=== PATIENT | female | born 1995 | race Caucasian/White ===

== ENCOUNTER → 2022-11-15 | Outpatient (RCR) | payer OTHER, MEDICAID ==
[2022-10-25 13:27] VITALS: BP 109/69; PULSE 84; TEMP 98.4
[2022-10-29 13:18] VITALS: BP 106/70; PULSE 78; TEMP 98.7
[2022-11-02 08:30] VITALS: BP 108/66; PULSE 82; TEMP 98.6
[2022-11-05 14:04] VITALS: BP 111/70; PULSE 79; TEMP 98.6
--- NOTE | 2022-11-05 15:15 | NUR ---
PICC flushed, wrapped with CHELA wrap. IV to LFA was removed at completion of first L LR, site wrapped with coban. Pt and exit dept, pt's gait steady.
[2022-11-08 13:24] VITALS: BP 113/72; PULSE 80; TEMP 98.4
[2022-11-12 13:27] VITALS: BP 112/72; PULSE 78; TEMP 98.5
[~2022-11-15] VITALS: Ht 152.4 cm; Wt 61.0 kg
[~2022-11-15] MED LIST: BENADRYL50 MG PO; COLACE 100100 MG/CAP PO; DRAMAMINE LESS25 MG PO; LACTATED RING IV; LOVENOX 3030 MG/0.3 SQ; PHENERGAN 25 TA25 MG PO; PHENERGAN50 MG/SUPP RC; PRILOSEC 20MG20 MG PO; THORAZINE 550 MG/TAB PO; TRANSDERM-0.5 MG/21 TD; ZOFRAN ODT4 MG PO
--- NOTE | 2022-11-15 13:15 | NUR ---
Patient ambulatory to [facility] Unit accompanied by & daughter. Upon greeting patient she stated "not doing good today." Patient appeared unsteady, offered a w/c & asked if she wanted to go straight to a chair without getting her weight. Patient stated that she had been so sick the last few days that she wanted to know her weight. After weight, proceeded to chair; & daughter to the waiting room. Once patient in chair she became tearful. Patient stated that she showered this morning & got her PICC line dressing wet; advised that we would look at the dressing & offered alternatives to cover the PICC. Discussed tape options for occlusion; patient stated that her & her are not working, do not have insurance & are "basically homeless." Patient become more tearful, sobbing. Offered support. Kathy MANZANARES enters with warm blanket. Patient begins to talk about financial stress at home, being sick & her doctor appointment yesterday. Offered to move her to a private room; patient agreed & assisted to room 9. When in room the patient repeated that her & her are not working, have no insurance & do not have a home. Offered to call social work to see if there are community resources available. Patient refused stating "they will just take my baby away." Advised that is not what social work would do, rather help her with support for her baby. Patient continued to refuse. Support provided. Patient's physical appearance was more pale than normal. She was more unsteady when ambulating. Noted a yellow tinged hue under her eyes. Patient usually wears bright colored eye make up, but was not today. Could not determine if yellow hue was faded bruising or makeup residual. Patient was able to calm self down after talking with staff.
[2022-11-15 13:20] VITALS: BP 133/88; PULSE 97; TEMP 98.2
--- NOTE | 2022-11-15 15:33 | NUR ---
Pt c/o nausea throughout stay in EU with occasional wretching and did vomit small amount of fluid. OB office was called and stated they would send order for IV phenergan. This was offered to pt prior to departure. Pt refuses IV phenergan, stating she wants to go home to try to sleep and will take her phenergan suppository at home. She was able to ambulate to restroom to urinate. States she was dizzy with activity earlier today, but this has improved with IVF. She refuses wheelchair assistance out. She is escorted to waiting room, gait steady, to meet her who walks out with her.
== END | disposition home or self-care (01) ==
LOC: EUO
DX: O21.0 Mild hyperemesis gravidarum (principal); Z3A.00 Weeks of gestation of pregnancy not specified
CPT/HCPCS: C1751; J1200; J2405; J7120

== ENCOUNTER 2022-12-14 11:00 | Outpatient (RCR) | payer OTHER, MEDICAID ==
[2022-11-20 14:11] VITALS: BP 114/71; PULSE 95; TEMP 97.8
[2022-11-22 12:28] VITALS: BP 117/64; PULSE 78; TEMP 98.7
[2022-11-23 13:20] VITALS: BP 111/67; PULSE 78; TEMP 97.8
--- NOTE | 2022-11-23 15:30 | NUR ---
Pt here for IV fluids.Pt requests to remain with pt during stay.Pt answers questions frequently directed to pt.Pt observed clenching fists when pt denies his need for assistance getting out of chair.
[2022-11-26 11:32] VITALS: BP 109/69; PULSE 83; TEMP 98.1
[2022-11-27 11:19] VITALS: BP 117/60; PULSE 85; TEMP 98
[2022-11-28 11:30] VITALS: BP 114/67; PULSE 88; TEMP 98.3
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
[2022-11-30 11:42] VITALS: BP 111/68; PULSE 91; TEMP 98.2
[2022-11-30 11:42] LABS: BILIRUBIN,TOTAL 0.2 mg/dL (0.2-1.2); CALCIUM 8.2 mg/dL (8.4-10.2); CREATININE, serum 0.62 mg/dL (0.57-1.11); POTASSIUM 3.7 mmol/L (3.5-4.5); TOTAL PROTEIN 5.6 gm/dL (6.2-8.1)
[2022-11-30 12:16] LABS: BASO # 0.1 K/mm3 (0.0-0.2); BASO % 0.7 % (0.0-2.0); EOS # 0.2 K/mm3 (0.0-0.7); EOS % 2.3 % (0.0-4.0); GRAN # 5.3 K/mm3 (1.4-6.5); GRAN % 74.3 % (42.2-75.2); HEMOGLOBIN 10.2 g/dl (12.5-16.0); LYMPH # 1.2 K/mm3 (1.2-3.4); LYMPH % 17.2 % (20.0-51.0); MEAN CELL VOLUME 93 fl (80.0-100.0); MEAN CORPUSCULAR HEMOGLOBIN 30 pg (27-31); MEAN CORPUSCULAR HGB CONC 33 g/dl (33.0-37.0); MEAN PLATELET VOLUME 9.3 fl (7.4-10.4); MONO # 0.4 K/mm3 (0.1-0.6); MONO % 5.2 % (1.7-9.3); PLATELET COUNT 278 K/mm3 (130-400); RED BLOOD COUNT 3.36 M/mm3 (4.10-5.30); REDCELL DISTRIBUTION WIDTH-CV 12.8 % (11.5-14.5)
[2022-11-30 12:17] LABS: HEMATOCRIT 31.1 % (37.0-47.0)
[2022-12-03 11:08] VITALS: BP 112/59; PULSE 109; TEMP 98.3
[2022-12-04 12:40] VITALS: BP 130/83; PULSE 112; TEMP 98.7
--- NOTE | 2022-12-04 13:29 | NUR ---
pt to Express for fluids, dressing that was placed yesterday has become loose to, the insert site is exposed to air. sterile dressing change completed. No further questions or concerns.
[2022-12-05 11:22] VITALS: BP 123/78; PULSE 107; TEMP 98.9
[2022-12-07 11:12] VITALS: BP 111/72; PULSE 89; TEMP 98.3
[2022-12-10 11:09] VITALS: BP 129/75; PULSE 97; TEMP 98.8
[2022-12-11 11:10] VITALS: BP 118/58; PULSE 92; TEMP 98.3
[2022-12-12 11:40] VITALS: BP 102/65; PULSE 88; TEMP 97.8
[~2022-12-14] VITALS: Ht 152.4 cm; Wt 61.3 kg
[2022-12-14 11:19] VITALS: BP 96/53; PULSE 81; TEMP 98.7
[2022-12-14 14:23] LABS: COLLECTION METHOD CLEAN CATCH
[2022-12-14 14:34] LABS: MUCOUS Present (NOT PRESENT); SQUAMOUS EPITHELIAL 0-2 /hpf (0-10); URINE BACTERIA None Seen /hpf (NONE SEEN); URINE RBC None Seen /hpf (0-2); URINE WBC 0-2 /hpf (0-2)
[2022-12-14 14:38] LABS: PH 8.5 (5-8); URINE APPEARANCE Clear (CLEAR/HAZY); URINE BLOOD Negative (NEGATIVE); URINE COLOR Yellow (YELLOW); URINE GLUCOSE Negative (NEGATIVE); URINE KETONE Negative (NEGATIVE); URINE NITRATE Negative (NEGATIVE); URINE PROTEIN(semi-quant) Negative (NEGATIVE); URINE UROBILINOGEN 0.2 (NEGATIVE)
[2022-12-21] MEDS ORDERED: LAMICTAL 100MG100 MG PO (11:47)
[2022-12-21] MEDS ORDERED: THORAZINE 225 MG/TAB PO (11:49)
[2022-12-21] MEDS ORDERED: CELEXA10 MG PO (11:49)
[2022-12-21] MEDS ORDERED: LOVENOX 4040 MG/0.4 SQ (11:50)
[2022-12-21] MEDS ORDERED: WELLBUTRIN XL150 MG PO (11:50)
[2022-12-24] MEDS ORDERED: PREDNISONE10 MG PO (11:21)
[2023-01-01] MEDS ORDERED: KLONOPIN2 MG PO (16:08)
[2023-01-02] MEDS ORDERED: ZYPREXA10 MG PO (11:25)
== END 2022-12-14 14:28 | disposition home or self-care (01) ==
LOC: EUO 11:00
PROVIDERS: Obstetrics & Gynecology
DX: O21.0 Mild hyperemesis gravidarum (principal); Z3A.00 Weeks of gestation of pregnancy not specified
CPT/HCPCS: J1200; J2405; J7120

== ENCOUNTER 2022-12-28 07:34 | Emergency (ER) | payer OTHER, MEDICAID ==
[~2022-12-28] VITALS: Ht 160 cm; Wt 60.9 kg
[~2022-12-28 07:34] MED LIST changes: +CELEXA10 MG PO; +LAMICTAL 100MG100 MG PO; +LOVENOX 4040 MG/0.4 SQ; +PREDNISONE10 MG PO; +THORAZINE 225 MG/TAB PO; +WELLBUTRIN XL150 MG PO
[2022-12-28 07:48] LABS: BASO # 0.1 K/mm3 (0.0-0.2); BASO % 0.5 % (0.0-2.0); EOS # 0.1 K/mm3 (0.0-0.7); EOS % 0.9 % (0.0-4.0); GRAN # 7.4 K/mm3 (1.4-6.5); GRAN % 67.5 % (42.2-75.2); LYMPH # 2.7 K/mm3 (1.2-3.4); LYMPH % 24.7 % (20.0-51.0); MEAN CELL VOLUME 92 fl (80.0-100.0); MEAN CORPUSCULAR HGB CONC 34 g/dl (33.0-37.0); MEAN PLATELET VOLUME 9.3 fl (7.4-10.4); MONO # 0.7 K/mm3 (0.1-0.6); PLATELET COUNT 253 K/mm3 (130-400); RED BLOOD COUNT 3.14 M/mm3 (4.10-5.30); REDCELL DISTRIBUTION WIDTH-CV 12.7 % (11.5-14.5)
[2022-12-28 07:49] LABS: HEMATOCRIT 28.9 % (37.0-47.0); HEMOGLOBIN 9.8 g/dl (12.5-16.0); MEAN CORPUSCULAR HEMOGLOBIN 31 pg (27-31)
[2022-12-28 08:14] LABS: ALANINE AMINOTRANSFERASE 10 U/L (0-55); ALBUMIN 3.2 gm/dL (3.5-5.0); ALKALINE PHOSPHATASE 55 U/L (40-150); ANION GAP 10 mmol/L (7-16); AST,SGOT 11 U/L (5-34); BILIRUBIN,TOTAL < 0.5 mg/dL (0.2-1.2); BLOOD UREA NITROGEN 5 mg/dL (7-19); CALCIUM 8.7 mg/dL (8.4-10.2); CARBON DIOXIDE 21 mmol/L (22-29); CHLORIDE 107 mmol/L (98-107); CREATININE, serum 0.64 mg/dL (0.57-1.11); GLUCOSE 84 mg/dL (70-99); POTASSIUM 3.5 mmol/L (3.5-4.5); SODIUM 138 mmol/L (136-145); TOTAL PROTEIN 5.8 gm/dL (6.2-8.1)
[2022-12-28 08:15] LABS: TROPONIN-I < 0.010 ng/mL (0.00-0.033)
--- NOTE | 2022-12-28 08:29 | NUR ---
Pt 24.1 GESTATION ACCORDING TO RECORDS. PT REPORTS SHE IS 28 WEEKS. PRESENTED TO ER WITH N/V. LETHARGIC AT THIS TIME. REPORTS TAKING "BENADRYL AND STEROIDS" AND FEELING "VERY GROGGY AND CRAZY". THIS NURSE TO ER TO OBTAIN A 2O MINUTE EFM STRIP. NO ACCELERATIONS OR DECELERATIONS NOTED. MINIMAL TO MODERATE VARIABILITY THROUGHOUT. FHR 140'S-150'S. NO CONTRACTIONS NOTED AT THIS TIME. ACTIVE FETUS THROUGHOUT ASSESSMENT.
[2022-12-28 11:55] VITALS: BP 101/53; PULSE 102; TEMP 98.2
[2023-01-01] MEDS ORDERED: KLONOPIN2 MG PO (16:08)
[2023-01-02] MEDS ORDERED: ZYPREXA10 MG PO (11:25)
== END 2022-12-28 12:02 | disposition home or self-care (01) ==
LOC: COL.ER 07:34
PROVIDERS: Emergency Medicine
DX: O99.342 Other mental disorders complicating pregnancy, second trimester (principal); O26.892 Other specified pregnancy related conditions, second trimester; F41.9 Anxiety disorder, unspecified; R51.9 Headache, unspecified; Z3A.24 24 weeks gestation of pregnancy; Z28.310 Unvaccinated for COVID-19
CPT/HCPCS: J0780; J1200; J1650; J2405; J7030

== ENCOUNTER 2023-03-15 11:00 | Outpatient (RCR) | payer OTHER, MEDICAID ==
[2023-02-16 07:47] VITALS: BP 135/72; PULSE 106; TEMP 98.3
[2023-02-17 08:03] VITALS: BP 117/68; PULSE 110; TEMP 98.2
--- NOTE | 2023-02-17 09:51 | NUR ---
PT ARRIVED 30 MINUTES LATE TO HER INFUSION THIS MORNING. UPON INQUIRING ABOUT TARDINESS, PATIENT'S ANSWERED STATING "MARY JANE WAS BEING A DOOFUS THIS MORNING AND SHE CAN'T KEEP TRACK OF ANY OF HER APPOINTMENT TIMES." LATER, PATIENT WAS TALKING TO THIS RN ABOUT HER GESTATIONAL DIABETES RESULTS AND STATED THAT SHE CAME CLOSE TO BEING DIAGNOSED WITH GESTATIONAL DIABETES, TO WHICH HER RESPONDED "YA IT'S BECAUSE YOU ARE A FAT FUCK MARY JANE". A SMALL PURPLE MARKING NOTED ON PATIENT'S LEFT HAND STRETCHING FROM THUMB TO INDEX FINGER. PATIENT DID NOT STATE THAT IT WAS CAUSING HER ANY PAIN. PATIENT'S VITAL SIGNS WERE WITHIN NORMAL LIMITS AND SHE TOLERATED INFUSION WELL.
--- NOTE | 2023-02-18 11:15 | NUR ---
Pt has had to have multiple dressing changes in past week. This RN educated pt on importance of keeping dressing clean and intact d/t increased risk of infection if otherwise cared for. Pt educated that dressing changes can also increase risk of infection and 1x per week is the standard to prevent this. Pt verbalized understanding of education and importance to care better for her PICC dressing home.
[2023-02-18 11:17] VITALS: BP 114/74; PULSE 113; TEMP 98.1
[2023-02-19 11:18] VITALS: BP 124/68; PULSE 119; TEMP 98.4
[2023-02-20 11:06] VITALS: BP 125/74; PULSE 103; TEMP 97.9
[2023-02-21 11:13] VITALS: BP 117/65; PULSE 108; TEMP 98.5
[2023-02-22 11:16] VITALS: BP 169/90; PULSE 107; TEMP 98.5
--- NOTE | 2023-02-22 12:05 | NUR ---
Patient to labor room 2 via wheelchair from [facility]. Patient oriented to room, patient assisted into bed. Patient reports contractions starting around 1115 every 15 minutes, no leaking of fluid or vaginal bleeding, and good movement. EFM and TOCO placed and tracing.
--- NOTE | 2023-02-22 12:07 | NUR ---
Pt reports to Kierra Wei she is having contranctions.This nurse clarified with pt.Per pt she has had contractions 3 min apart.Pt reports they had been happening since about 30 min after arrival.Pt requests to be checked by OB.Ob charge called by this nurse.Pt taken to OB at 1205,report to nurse.Clarified if OB wanted her fluids to continue to infuse.Pt transferred with her LR/Zofran infusing by gravity as previously ordered.
[2023-02-22 12:30] VITALS: BP 127/75; PULSE 89; TEMP 98.2
[2023-02-22 13:00] VITALS: BP 124/70; PULSE 87
[2023-02-22 13:30] VITALS: BP 120/69; PULSE 88
--- NOTE | 2023-02-22 13:47 | NUR ---
THIS RN CALLS WITH AN UPDATE, SEE PHYSICIAN NOTIFICATION. GIVES THIS RN AN ORDER FOR DISCHARGE, THIS RN UNABLE TO ENTER DISCHARGE ORDER DUE TO EXPRESS [facility] ACCOUNT.
[2023-02-22 13:50] VITALS: BP 122/68; PULSE 91
--- NOTE | 2023-02-22 14:00 | NUR ---
DISCHARGE INSTRUCTIONS DISCUSSED WITH PATIENT, PATIENT VERBALIZES UNDERSTANDING. PATIENT AMBULATORY OFF UNIT WITH SIGNIFICANT OTHER.
[2023-02-23 08:02] VITALS: BP 131/76; PULSE 100; TEMP 98
[2023-02-24 07:51] VITALS: BP 128/79; PULSE 16; TEMP 97.9
[2023-02-25 11:06] VITALS: BP 119/74; PULSE 104; TEMP 98
[2023-02-26 11:13] VITALS: BP 112/65; PULSE 115; TEMP 97.5
[2023-02-27 11:23] VITALS: BP 127/75; PULSE 112; TEMP 98.6
[2023-02-28 11:16] VITALS: BP 114/56; PULSE 104; TEMP 98.2
--- NOTE | 2023-02-28 13:25 | NUR ---
PICC dressing coming up around edges. It is reenforced with tegaderm. Home cares reviewed. Russell wrap applied for additional protection. JOSE Shin aware.
[2023-03-01 11:10] VITALS: BP 109/73; PULSE 101; TEMP 97.6
--- NOTE | 2023-03-01 11:13 | NUR ---
Pt asked if they will be coming in this weekend for IV infusions. States they will not be here this weekend and we will see them for their Saturday appointment.
[2023-03-04 11:15] VITALS: BP 131/83; PULSE 117; TEMP 97.5
[2023-03-05 11:53] VITALS: BP 126/78; PULSE 98; TEMP 97.9
[2023-03-07 11:34] VITALS: BP 134/78; PULSE 117; TEMP 97.8
[2023-03-08 10:55] VITALS: BP 120/65; PULSE 113; TEMP 97.7
--- NOTE | 2023-03-08 11:54 | NUR ---
1129- This RN to bedside in Express unit. EFM and TOCO on. Pt denies VB, LOF, UCs. +FM per Pt. 1154- Category I FHR tracing with accels. EFM and TOCO off. Questions answered.
--- NOTE | 2023-03-08 12:53 | NUR ---
NST was completed while pt was in dept. She tolerated meds without issue. PICC flushed, site wrapped with CHELA wrap for protection. She and exit dept, gait steady. Pt states she plans to return for treatment on Saturday.
[2023-03-12 11:29] VITALS: BP 121/69; PULSE 98; TEMP 97.9
[2023-03-13 11:13] VITALS: BP 134/78; PULSE 103; TEMP 97.9
[2023-03-14 11:19] VITALS: BP 121/74; PULSE 120; TEMP 98.5
[~2023-03-15] VITALS: Ht 152.4 cm; Wt 60.4 kg
[~2023-03-15 11:00] MED LIST changes: +KLONOPIN2 MG PO; +MIRALAX PA17 GM/Dose PO; +ZYPREXA10 MG PO
[2023-03-15 11:11] VITALS: BP 124/71; PULSE 105; TEMP 97.9
--- NOTE | 2023-03-15 13:27 | NUR ---
patient on heart monitor at 1310. patient reports occassional contractions, but no leaking of fluid or bleeding. Patient reports good movement. Heart tones reactive and category 1. No contractions noted at this time. patient sitting comfortably in chair during strip. will report FHT to primary nurse.
--- NOTE | 2023-03-15 13:33 | NUR ---
ONE CONTRACTION NOTED AT 1328, FOR APPROXIMATELY 120 SECONDS IN LENGTH. PATIENT DID NOT FEEL CONTRACTION WAS STRONG.
== END 2023-03-15 13:38 | disposition home or self-care (01) ==
LOC: EUO 11:00
DX: O21.0 Mild hyperemesis gravidarum (principal); Z3A.24 24 weeks gestation of pregnancy
CPT/HCPCS: J1200; J1756; J2405; J7120

== ENCOUNTER 2023-04-16 11:00 | Outpatient (RCR) | payer OTHER, MEDICAID ==
[2023-03-19 11:34] VITALS: BP 117/79; PULSE 100; TEMP 98
[2023-03-20 10:59] VITALS: BP 135/77; PULSE 120; TEMP 98.6
[2023-03-21 11:13] VITALS: BP 128/76; PULSE 101; TEMP 98.7
--- NOTE | 2023-03-21 13:42 | NUR ---
Pt tolerated infusion without issue. PICC flushed, wrapped with coban. Pt exits dept with steady gait.
[2023-03-22 11:20] VITALS: BP 120/72; PULSE 98; TEMP 98.1
--- NOTE | 2023-03-22 13:27 | NUR ---
1230 FHT 180-190 FOR 10 MIN THEN DECREASED TO 160. GREAT MOVEMENT NOTED
[2023-03-25 11:21] VITALS: BP 119/71; PULSE 97; TEMP 98
[2023-03-26 12:31] VITALS: BP 110/69; PULSE 110; TEMP 98.1
[2023-03-27 11:14] VITALS: BP 123/67; PULSE 115; TEMP 98
[2023-03-28 11:17] VITALS: BP 120/70; PULSE 114; TEMP 98.4
[2023-03-29 11:19] VITALS: BP 134/76; PULSE 120; TEMP 98.6
--- NOTE | 2023-03-29 12:45 | NUR ---
Patient in express unit. Here to do heart tones. heart rate 130 with accelerations noted. Patient states has been having sone contractions, few noted on strip. On palpation, contractions mild. Let her know that if contractions become stronger, closer together, or any other problems, to call o.b. unit. 1310 Dr. Leon called and let him know that heart tones are 130 with accelerations noted. Also let him know that patient feeling some contractions. Orders given to dismiss and to follow up with appointment.
[2023-04-01 11:49] VITALS: BP 131/77; PULSE 106; TEMP 98
[2023-04-02 11:12] VITALS: BP 136/81; PULSE 120; TEMP 98.5
[2023-04-04 11:14] VITALS: BP 121/76; PULSE 122; TEMP 97.5
[2023-04-05 11:14] VITALS: BP 119/73; PULSE 99; TEMP 98.3
[2023-04-08 11:12] VITALS: BP 124/77; PULSE 115; TEMP 97.7
[2023-04-10 13:57] VITALS: BP 141/80; PULSE 105; TEMP 98
--- NOTE | 2023-04-12 11:50 | NUR ---
PT HERE FOR HYPEREMISIS. NST REACTIVE. PT REPORTS NO VB, AND REGULAR MOVEMENT. WHEN ASKED ABOUT FLUID LEAKING SHE SAID YES SHE DID HAVE FLUID LEAKING, BUT NOT ENOUGH TO CHANGE HER UNDERWEAR OR ANYTHING.
[2023-04-12 11:58] VITALS: BP 131/87; PULSE 97; TEMP 97.6
[2023-04-15 11:12] VITALS: BP 129/79; PULSE 107; TEMP 97.5
[~2023-04-16] VITALS: Ht 152.4 cm; Wt 70.2 kg
[~2023-04-16 11:00] MED LIST changes: +LR IV SCH; +NS Flush 10 ML SYRINGE (PICC Line - 10 mL Daily if not in use) ICA SCH; +NS Flush 10 ML SYRINGE (PICC Line - 10 mL PRN) ICA; +ONDANSETRON IV SCH; +Promethazine 25 MG/ML 1 ML VIAL IV PRN; +diphenhydrAMINE 50 MG/ML 1 ML VIAL IV SCH
[2023-04-16 11:16] VITALS: BP 127/83; PULSE 105; TEMP 97.7
== END 2023-04-17 12:28 | disposition home or self-care (01) ==
LOC: EUO 11:00
DX: O21.0 Mild hyperemesis gravidarum (principal); Z3A.33 33 weeks gestation of pregnancy
CPT/HCPCS: J1200; J2405; J7120

== ENCOUNTER 2023-04-16 21:09 | Inpatient (IN) | payer MEDICAID ==
[~2023-04-16] VITALS: Ht 152.4 cm; Wt 70.5 kg
[~2023-04-16 21:09] MED LIST changes: -LR IV SCH; -NS Flush 10 ML SYRINGE (PICC Line - 10 mL Daily if not in use) ICA SCH; -NS Flush 10 ML SYRINGE (PICC Line - 10 mL PRN) ICA; -ONDANSETRON IV SCH; -Promethazine 25 MG/ML 1 ML VIAL IV PRN; -diphenhydrAMINE 50 MG/ML 1 ML VIAL IV SCH
--- NOTE | 2023-04-16 21:15 | NUR ---
G3L1 at 39 weeks and 4 days arrives to unit with complaint of spontaneous rupture of membranes at 2100. Pt reports feeling large gush of clear fluid and has been juany about every 5 minutes since 1100 today. Reports good movement and denies vaginal bleeding. Pt oriented to room, call light within reach, bed in low and locked position. Clean gown on. US and toco explained and applied. Amnitrace negative SVE /-3, will send ROM plus.
[2023-04-16 22:00] VITALS: BP 138/94; PULSE 90
[2023-04-16 22:30] VITALS: BP 136/89; PULSE 95
--- NOTE | 2023-04-16 22:36 | NUR ---
CONSULTED FAM WITH [facility] IF PITOCIN MAY BE INFUSED WITH PTs EXISTING PICC LINE. HE CONFIRMS THAT PITOCIN IS SAFE TO BE INFUSED THROUGH PICC.
[2023-04-16 23:00] VITALS: BP 135/83; PULSE 91
[2023-04-16 23:30] VITALS: BP 136/88; PULSE 91; TEMP 97.9
[2023-04-16 23:42] LABS: BASO % 0.4 % (0.0-2.0); EOS # 0.1 K/mm3 (0.0-0.7); GRAN # 6.3 K/mm3 (1.4-6.5); GRAN % 68.8 % (42.2-75.2); HEMOGLOBIN 11.6 g/dl (12.5-16.0); LYMPH # 2.1 K/mm3 (1.2-3.4); LYMPH % 23.5 % (20.0-51.0); MEAN CELL VOLUME 93 fl (80.0-100.0); MEAN CORPUSCULAR HEMOGLOBIN 31 pg (27-31); MEAN CORPUSCULAR HGB CONC 33 g/dl (33.0-37.0); MONO # 0.6 K/mm3 (0.1-0.6); PLATELET COUNT 245 K/mm3 (130-400); RED BLOOD COUNT 3.77 M/mm3 (4.10-5.30); REDCELL DISTRIBUTION WIDTH-CV 14.1 % (11.5-14.5)
[2023-04-16 23:57] LABS: TRICYCLIC ANTIDEPRESS URINE NEGATIVE (NEGATIVE)
[2023-04-17] VITALS (61 sets, daily range): BP systolic 101–174; BP diastolic 55–86; PULSE 81–122; TEMP 97.4–98
--- NOTE | 2023-04-17 12:45 | NUR ---
1125- SVE 1127- CALLED DR CLEANING TO UPDATE. DR CLEANING ON HIS WAY. 1133-ACOSTA OUT. 550 MLS OF URINE. 1144- DR CLEANING ON UNIT AND AT BEDSIDE. 1148- PT BEGAN PUSHING WITH DR CLEANING. 1245- SPONTANEOUS VAGINAL DELIVERY OF A VIABLE BABY BOY BY DR CLEANING. HAD A NUCHAL X1 AND A 15 SECOND SHOULDER DYSTOCIA. BABY WAS PALCED ON MOM'S ABDOMIN AND STIMULATED, BUT 1 MIN WAS 5 SO FOB CUT THE CORD AND BABY WAS MOVED TO THE WARMER UNDER THE CARE OF NURSERY NURSE [facility]. 1248- SPONTANEOUS DELIVERY OF THE PLACENTA BY DR CLEANING. NO REPAIRS NEEDED. EBL 50. BLEEDING MINIMAL. PT REPOSITIONED. VS WNL.
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
[2023-04-18 00:01] VITALS: BP 128/70; PULSE 81; TEMP 98.1
[2023-04-18 03:36] VITALS: BP 130/72; PULSE 88; TEMP 98.1
[2023-04-18 05:27] LABS: HEMOGLOBIN 11.1 g/dl (12.5-16.0)
[2023-04-18 05:36] LABS: HEMATOCRIT 32.6 % (37.0-47.0)
[2023-04-18 09:00] VITALS: BP 134/83; PULSE 89; TEMP 97.8
--- NOTE | 2023-04-18 11:14 | NUR ---
1030 MOTHER IN NURSERY TO WORK ON . MOTHER UPDATED WITH PICC REMOVAL TO HAPPEN TODAY.
--- NOTE | 2023-04-18 11:38 | NUR ---
PICC REMOVED. PT LAYING FLAT AT THIS TIME.
--- NOTE | 2023-04-18 13:07 | NUR ---
Initial visit attempt; Family resting, Vertical Borer left card offering God's blessings for the of Patients' son and information regarding the availability of Spiritual Care at our hospital. Vertical Borer will look in on patient again when possible.
[2023-04-18 15:05] VITALS: BP 133/80; PULSE 92; TEMP 97.6
--- NOTE | 2023-04-18 15:24 | NUR ---
1505 PT REQUESTS PAIN MEDICATIONS. 08/25. ROXYCODONE GIVEN AT THIS TIME. VSS. PT RESTING IN BED AT THIS TIME.
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
--- NOTE | 2023-04-18 17:42 | NUR ---
1610 PATIENT SLEEPING AT THIS TIME. TYLENOL AND IBUPROFEN SCHEDULED. THIS RN DID NOT WAKE PATIENT TO GIVE MEDS. INFANT DUE TO EAT AT 1730. 1715 PATIENT STILL SLEEPING. PT WOKE UPON KNOCKING AND ENTERING ROOM. AGREED TO TAKE PAIN MEDICATIONS. ASKED FOR NURSERY TO GIVE FORMULA AT 1730 FEED. PT WENT BACK TO SLEEP.
[2023-04-18 18:45] VITALS: BP 146/85; PULSE 90; TEMP 98
[2023-04-19 08:20] VITALS: BP 145/91; PULSE 105; TEMP 98
--- NOTE | 2023-04-19 13:10 | NUR ---
[employer]icians [employer]ades Workers and Social Work student brought pt diapers, laundry detergent, and mittens for baby to build rapport with mother. industrial services worker and student spoke with mom a little bit and she remembered us and engaged in conversation.industrial services worker asked if she would like any hygiene items and pt accepted the offer and stated she would like nursing bras, soap, lotion, and shampoo/conditioner. industrial services worker and student made pt a bag with those items as well as extra toiletry items and brought to pt. Pt appeared to be appreciative and seemed more open to conversation. Pt said she finally gets time with her baby and offered staff to hold baby. Staff politely declined but offered affirmations and compliments about baby.
--- NOTE | 2023-04-19 13:23 | NUR ---
winery worker met with patient alone. Patient denies any concerns and states she is excited about her new baby and linked into resources. Patient states that her will now be able to get a job as she doesn't have to go to the Express Unit weekly. Worker advised that the hospital is a safe place and can help her. Patient states that she receives mental health services through Dr Wilkes's office and that she is currently taking medications for her mental health concerns. Worker collaborated with Dr San and nursing regarding visit.
== END 2023-04-19 13:55 | disposition home or self-care (01) | DRG 807 ==
LOC: LDRO 21:09 → LDR 21:32 → LDRO 23:02 → LDR 23:03 → OB 23:03
PROVIDERS: Obstetrics & Gynecology; ADMIT Obstetrics & Gynecology
PROC: 10E0XZZ Delivery of Products of Conception, External Approach (ICD-10-PCS; principal; 2023-04-17)
DX: O99.824 Streptococcus B carrier state complicating childbirth (principal); Z37.0 Single live birth; Z3A.39 39 weeks gestation of pregnancy; F41.9 Anxiety disorder, unspecified; F32.A Depression, unspecified; O99.344 Other mental disorders complicating childbirth; F60.3 Borderline personality disorder; O99.02 Anemia complicating childbirth; D50.9 Iron deficiency anemia, unspecified; O21.0 Mild hyperemesis gravidarum; O66.0 Obstructed labor due to shoulder dystocia; O69.81X0 Labor and delivery complicated by cord around neck, without compression, not applicable or unspecified
CPT/HCPCS: J2540; J2795; J7120

== ENCOUNTER 2023-04-27 13:41 | Emergency (ER) | payer MEDICAID ==
[~2023-04-27] VITALS: Ht 152.4 cm; Wt 63.6 kg
[2023-04-27 13:45] VITALS: TEMP 98.2
[2023-04-27] MEDS ORDERED: PROZAC 20MG20 MG PO (14:13)
[2023-04-27] MEDS ORDERED: ATIVAN 1MG T1 MG/TAB PO (14:13)
[2023-04-27] MEDS ORDERED: LORazepam 1 MG TAB PO ONE (14:15)
[2023-04-27 14:26] VITALS: BP 143/96; PULSE 90
== END 2023-04-27 14:26 | disposition home or self-care (01) ==
LOC: COL.ER 13:41
DX: O99.345 Other mental disorders complicating the puerperium (principal); F31.9 Bipolar disorder, unspecified; Z79.899 Other long term (current) drug therapy